=== PATIENT | female | born 1980 | race American Indian/Alaskan Native ===

== ENCOUNTER 2018-03-12 15:38 | Emergency (ER) | payer MEDICAID ==
[2018-03-12 15:49] VITALS: BP 137/98
[2018-03-12] MEDS ORDERED: MOTRIN PO ONE (16:21)
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
== END 2018-03-12 16:46 | disposition left against medical advice (07) ==
LOC: ED 15:38
DX: M79.601 Pain in right arm (principal); F17.200 Nicotine dependence, unspecified, uncomplicated
CPT/HCPCS: 99282